=== PATIENT | male | born 1955 | race Caucasian/White ===

== ENCOUNTER 2019-12-18 20:33 | Emergency (ER) | payer OTHER ==
[~2019-12-18] VITALS: Ht 172.7 cm; Wt 71.2 kg
[2019-12-18] MEDS ORDERED: DOXAZOSIN MESYLA8 MG PO (20:39)
[2019-12-18] MEDS ORDERED: EZETIMIBE10 MG PO (20:39)
[2019-12-18] MEDS ORDERED: COZAAR 25 MG TA25 M1 PO (20:39)
[2019-12-18 21:27] LABS: ABSOLUTE NEUTROPHILS 6.2 thou/uL (1.4-8.2); BASOPHILS 0.7 % (0.0-2.0); EOSINOPHILS 0.9 % (0.0-3.0); HEMATOCRIT 41.4 % (42.0-52.0); HEMOGLOBIN 13.8 gm/dL (14.0-18.0); LYMPHOCYTES 15.5 % (24.0-44.0); MCH 31.8 pg (26.0-34.0); MCHC 33.3 g/dL (28.0-37.0); MCV 95.4 fL (80.0-100.0); MONOCYTES 7.3 % (1.0-8.0); PLATELET COUNT 170 thou/uL (150-400); POLYS 75.6 % (36.0-66.0); RBC 4.34 mil/uL (4.50-6.00); RDW 13.6 % (10.5-14.5); WBC 8.2 thou/uL (4.0-11.0)
[2019-12-18 21:36] LABS: CALCIUM 8.1 mg/dL (8.5-10.1); CREATININE 0.9 mg/dL (0.7-1.3); POTASSIUM 3.7 mmol/L (3.5-5.1)
[2019-12-18 21:42] LABS: ALBUMIN 3.4 g/dL (3.4-5.0); APTT 25.9 Seconds (24.5-32.8); DIRECT BILIRUBIN 0.5 mg/dL (<0.1-0.2); PROTIME 10.4 Seconds (9.3-11.4); TOTAL BILIRUBIN 0.9 mg/dL (0.2-1.0); TOTAL PROTEIN 6.8 g/dL (6.4-8.2)
[2019-12-18 22:02] LABS: URINE BILIRUBIN NEGATIVE (Negative); URINE BLOOD NEGATIVE (Negative); URINE CLARITY CLEAR; URINE COLOR YELLOW; URINE GLUCOSE-RANDOM* NEGATIVE (Negative); URINE KETONES NEGATIVE (Negative); URINE LEUKOCYTES-REFLEX NEGATIVE (Negative); URINE NITRITE-REFLEX NEGATIVE (Negative); URINE PROTEIN (DIPSTICK) NEGATIVE (Negative); URINE UROBILINOGEN 0.2 E.U./dl (0.2-1.0)
[2019-12-18] MEDS ORDERED: BENTYL 20 MG TA20 M1 PO (22:50)
[2019-12-18] MEDS ORDERED: ZOFRAN ODT4 MG PO (22:50)
[2019-12-18 23:09] VITALS: BP 125/63
== END 2019-12-18 23:10 | disposition home or self-care (01) ==
LOC: ER 20:33
PROVIDERS: Emergency Medicine
DX: R10.84 Generalized abdominal pain (principal); E87.2 Acidosis; I10 Essential (primary) hypertension; E78.5 Hyperlipidemia, unspecified; Z79.899 Other long term (current) drug therapy